=== PATIENT | female | born 1955 | race Caucasian/White ===

== ENCOUNTER 2021-03-08 20:59 | Inpatient (IN) ==
[2021-03-08] MEDS ORDERED: ACETAMINOPHEN 650 MG/65 ML BAG IV ONE (21:39)
[2021-03-08] MEDS ORDERED: KETOROLAC 15 MG/ML VIAL IV ONE (21:39)
[2021-03-09] MEDS ORDERED: ROPIVACAINE HCL/PF 20 ML VIAL IJ ONE (00:08)
--- NOTE | 2021-03-09 00:26 | Emergency Department Note ---
Fall HPI General Chief Complaint: Fall Stated Complaint: LOW BACK PAIN Time Seen by Provider: 03/08/21 21:34 Source: patient and EMS Mode of arrival: EMS Limitations: no limitations History of Present Illness HPI Narrative: Narrative: 66 yo F w/ ho HTN, glaucoma p/w R hip pain. She reports that she was walking out of a store when she tripped, falling to the ground. She did not hit her head or lose consciousness. Her only complaint is of R hip pain, which was the leg that was caught when she tripped. She denies any numbness, tingling, weakness of the RLE. She has never had any pain like this in the past. The pain is worsened w/ ambulation and relieved w/ rest. She was able to have some bystanders assist her into the car, and was able to drive home. However she could not then get out of the car and thus called for help. Related Data Home Medications Medication Instructions Recorded Confirmed lisinopril-hydrochlorothiazide tab PO 03/08/21 brimonidine 1 drp OPHTHALMIC (EYE) BID 03/09/21 03/09/21 latanoprost 1 drp OPHTHALMIC (EYE) HS 03/09/21 03/09/21 Allergies Allergy/AdvReac Type Severity Reaction Status Date / Time No Known Drug Allergies Allergy Verified 03/08/21 21:05 Review of Systems ROS ROS Narrative: Narrative: All systems ED: reviewed and negative except as stated. [facility] Narrative Patient History Narrative: Narrative: Medical/Surgical/Family History All Active Problems (Updated 03/09/21 @ 01:50 by Trey Osuna MD) Knee pain, acute (Acute) Colovaginal fistula (Acute) Cellulitis of colostomy (Acute) Cellulitis (Acute) Infected surgical wound (Acute) Acute pain of right hip (Acute) Closed fracture of neck of right femur (Acute) Social History Smoking Status: Former smoker Exam Narrative Narrative: Narrative: General Limitations: no limitations General appearance: Present alert and in no apparent distress Head Head: Present atraumatic and normocephalic Eye Eye: Present normal appearance ENT ENT: Present normal oropharynx and mucous membranes moist Neck Neck: Present normal inspection; Absent tenderness Chest Chest: Present normal inspection and symmetric chest wall rise Respiratory Respiratory: Present normal lung sounds bilaterally; Absent respiratory distress, rales/crackles, wheezes and stridor Cardiovascular Cardiovascular: Present regular rate, normal rhythm, +S1, +S2 and other (2+ B/L radial pulse); Absent systolic murmur and diastolic murmur Adbominal Abdominal: Present soft and normal bowel sounds; Absent distention and tenderness Extremities Extremities: Present other (RLE foreshortened and rotated. Pain w/ external rotation. Unable to tolerate flexion and the hip and knee. Full ROM at ankle. Intact sensation over all dermatomes on the R foot. Intact 2+ DP pulse and 1 sec CR over the R great toe. ) Neurological Neurological: Present alert and oriented X3 Psychiatric Psychiatric: Present normal affect Skin Skin: Present warm (WNL) and dry Course Vital Signs Vital signs: Vital Signs Temperature 98.8 F 03/08/21 21:00 Pulse Rate 72 03/08/21 21:00 Respiratory Rate 20 03/08/21 21:00 Blood Pressure 110/80 03/08/21 21:00 Pulse Oximetry (%) 94 03/08/21 21:00 Temperature 97.8 F 03/09/21 03:02 Pulse Rate 78 03/09/21 03:02 Respiratory Rate 18 03/09/21 03:02 Blood Pressure 109/63 03/09/21 03:02 Pulse Oximetry (%) 93 03/09/21 03:02 Procedures Other Procedure: Procedure: US guided fascia iliaca block Consent: Verbal, R/B/A explained to pt Indication: R hip Fx Procedure: I used US to identify the femoral nerve directly lateral to the femoral artery. I then made a wheal of anesthetic on the overlying skin w/ 1% lidocaine after aspirating to ensure that there was no intravascular injection. I then prepped the site with betadine prep (chloraprep stick not available). With a sterile sheath over the US probe, I re-identified the site. I then used U S guidance to direct a 21 guage spinal needle just lateral to the nerve and under the iliac fascia. The spinal needle was attached to extension tubing and had already been prepped w/ NS. I had the RN, holding a saline flush attached to the extension tubing, inject NS after aspirating to ensure that were not in a vessel. This opened the space very well around the nerve. I then directed him to switch out the saline for 30 ml of 0.5% ropivicaine. Meanwhile I held the needle and probe in place. Once done, we aspirated again w/ no blood present. While I cont'd to hold the needle and probe in place, he injected 5 ml at a time and then aspirated. We cont'd this, with myself ensuring that the needle was in place and that there was no blood being aspirated, until 30ml of ropivicaine was given. I then withdrew the needle and the procedure was complete. MDM MDM Narrative Medical decision making narrative: Narrative: 66 yo F w/ well controlled HTN and glaucoma p/w R hip pain. DDx - Hip Fx, spinal injury, closed head injury, neurovascular injury This pt presented clinically stable, in NAD. She had no clinical evidence of head or spinal injury, and no neurovascular injury on Hx or exam. There was obvious evidence of a R hip Fx. I checked an XR which showed a Fx, however the views were not ideal. In order to ensure that no other Fxs were present, I checked a CT pelvis w/o contrast, which showed only the impacted R femoral neck Fx. I d/w Dr Marquez who kindly agreed to take the pt on his service as the hospitalist service was capped. I placed routine preop labs, which showed no anemia, normal renal function, normal electrolyte. I also completed a fascia iliaca nerve block on the right, which was effective in reducing her pain. She was then moved to the floor for ongoing care. Lab Data Result diagrams: 03/09/21 00:26 03/09/21 00:26 Labs: Lab Results 03/09/21 03/09/21 03/09/21 Range/Units 00:25 00:26 00:26 WBC 11.2 H (4.5-11.0) K/mcL RBC 4.47 (3.59-5.38) M/mcL Hgb 13.3 (11.2-15.7) g/dL Hct 38.7 (34.1-44.9) % MCV 86.6 (80.0-100.0) fL MCH 29.8 (26.0-34.0) pg MCHC 34.4 (31.0-36.0) g/dL RDW 13.6 (11.5-14.5) % Plt Count 175 (140-440) K/mcL MPV 10.2 (7.4-10.4) fL Neut % (Auto) 82.9 H (38.0-78.0) % Lymph % (Auto) 11.7 L (15.5-49.0) % [place] % (Auto) 4.9 (1.0-12.0) % Eos % (Auto) 0.2 (0.0-7.0) % Baso % (Auto) 0.3 (0.0-2.0) % Lymph # (Auto) 1.31 L (1.50-4.80) K/mcL [place] # (Auto) 0.55 (0.10-0.90) K/mcL Eos # (Auto) 0.02 (0.00-0.70) K/mcL Baso # (Auto) 0.03 (0.00-0.30) K/mcL Absolute Neutrophils 9.30 H (1.80-8.00) K/mcL PT 13.7 (11.9-14.5) sec INR 1.0 (0.9-1.1) APTT 29.7 (20.0-37.0) sec Sodium 138 (133-145) mmol/L Potassium 3.8 (3.3-5.1) mmol/L Chloride 101 (96-108) mmol/L Carbon Dioxide 25 (22-30) mmol/L Anion Gap 12.0 (8.0-16.0) BUN 13 (8-23) mg/dL Creatinine 0.7 (0.6-1.1) mg/dL GFR Calculation 89 Glucose 129 H (70-105) mg/dL Calcium 9.1 (8.6-10.4) mg/dL Total Bilirubin 0.3 (0.1-1.0) mg/dL AST 20 (<32) U/L ALT 18 (<40) U/L Alkaline Phosphatase 76 (39-117) U/L Total Protein 6.6 (5.9-8.4) gm/dL Albumin 3.9 (3.2-5.2) gm/dL Globulin 2.7 (2.2-3.7) gm/dL Albumin/Globulin Ratio 1.4 (1.0-2.3) Discharge Plan Patient/Caregiver Discharge Instructions Pt seen by OFFICE MACHINE EMBOSSOGRAPH OPERATOR/PA only: No Clinical Impression: Acute pain of right hip, Closed fracture of neck of right femur Patient Disposition: Xfer As Inpt ([facility]) Condition: Good Discharge Date/Time: 03/09/21 01:18 Discharge Comment: on WW 0118hrs
[2021-03-09 01:18] LABS: Basophils # (Auto) 0.03 K/mcL (0.00-0.30); Basophils % (Auto) 0.3 % (0.0-2.0); Eosinophils # (Auto) 0.02 K/mcL (0.00-0.70); Eosinophils % (Auto) 0.2 % (0.0-7.0); Hematocrit 38.7 % (34.1-44.9); Hemoglobin 13.3 g/dL (11.2-15.7); Lymphocytes # (Auto) 1.31 K/mcL (1.50-4.80); Lymphocytes % (Auto) 11.7 % (15.5-49.0); Mean Cell Volume 86.6 fL (80.0-100.0); Mean Corpuscular HGB Conc 34.4 g/dL (31.0-36.0); Mean Platelet Volume 10.2 fL (7.4-10.4); Monocytes # (Auto) 0.55 K/mcL (0.10-0.90); Monocytes % (Auto) 4.9 % (1.0-12.0); Neutrophils % (Auto) 82.9 % (38.0-78.0); Platelet Count 175 K/mcL (140-440); RBC 4.47 M/mcL (3.59-5.38); Red Cell Distribution Width 13.6 % (11.5-14.5); WBC 11.2 K/mcL (4.5-11.0)
[2021-03-09] MEDS ORDERED: ONDANSETRON 4 MG/2 ML VIAL IV PRN ×2 (01:26→18:11)
[2021-03-09] MEDS ORDERED: morphine 2 MG/ML VIAL IV PRN (01:26)
[2021-03-09 01:31] LABS: Partial Thromboplastin Time 29.7 sec (20.0-37.0); Prothrombin Time 13.7 sec (11.9-14.5)
[2021-03-09 01:44] LABS: ALT/SGPT 18 U/L (<40); AST/SGOT 20 U/L (<32); Albumin 3.9 gm/dL (3.2-5.2); Albumin/Globulin Ratio 1.4 (1.0-2.3); Alkaline Phosphatase 76 U/L (39-117); Bilirubin,Total 0.3 mg/dL (0.1-1.0); Blood Urea Nitrogen 13 mg/dL (8-23); Calcium 9.1 mg/dL (8.6-10.4); Carbon Dioxide 25 mmol/L (22-30); Chloride 101 mmol/L (96-108); Globulin 2.7 gm/dL (2.2-3.7); Glomerular Filtration Rate 89; Glucose 129 mg/dL (70-105)
[2021-03-09] MEDS ORDERED: ACETAMINOPHEN 650 MG/65 ML BAG IV PRN (01:44)
[2021-03-09] MEDS ORDERED: morphine 4 MG/ML VIAL ONE (02:03)
[2021-03-09] MEDS: morphine 4 MG/ML VIAL IV PRN ×2 (02:17→08:16)
--- NOTE | 2021-03-09 07:43 | History and Physical Report ---
DATE OF ADMISSION: 03/09/2021 CHIEF COMPLAINT: Right hip fracture. HISTORY OF PRESENT ILLNESS: The patient is a 66-year-old female who sustained a fall. This was a non-syncopal ground-level fall. She had immediate pain and was able to make it to her house to drive home, but she was transferred then to the Emergency Room and workup has shown a right hip fracture. This is a femoral neck, subcapital. She now presents with pain, but this is well-tolerated as long as she is at rest and nonmobile. PAST MEDICAL HISTORY: Hypertension, glaucoma. PAST SURGICAL HISTORY: Non-contributory to present problem. MEDICATIONS: Lisinopril/hydrochlorothiazide. Bromindione eye drops. Latanoprost eye drops. ALLERGIES: None. REVIEW OF SYSTEMS: She has generally been healthy and her ten-point review of systems is negative for recent past. PHYSICAL EXAMINATION: GENERAL: She is awake and alert. She answers questions appropriately. HEAD: Normocephalic/atraumatic. EYES: Pupils round and reactive to light and accommodation. No conjunctivitis. ENT: Within normal limits. NECK: Supple without pain on range of motion. HEART: Regular. LUNGS: Clear. ABDOMEN: Benign. EXTREMITIES: Her right lower extremity was carefully positioned. She does have pain with any motion. She is grossly without neurovascular deficit. IMAGING: Radiographs demonstrate a displaced femoral neck fracture. IMPRESSION: Right femoral neck fracture, displaced. PLAN: We have reviewed surgical options. Risks, complications, and limitations of the surgery have been discussed. We plan to proceed with a hemiarthroplasty on the right hip. Patient understands the discussed procedure and wishes to proceed. GDD:zaid Job ID: [id number] Doc ID: [id number] Martín Kaufman MD
[2021-03-09 08:43] LABS: Appearance,Urine CLOUDY (Clear); Bilirubin,Urine Negative (Negative); Color,Urine AMBER; Culture Indicated,Urine No; Glucose,Urine (UA) Negative (Negative); Ketones,Urine Negative (Negative); Leukocyte Esterase,Urine Negative /uL (Negative); Nitrate,Urine Negative (Negative); Protein,Urine Negative (Negative); Specific Gravity,Urine 1.034 (1.000-1.035); Urine Blood Negative (Negative); Urobilinogen,Urine Negative
--- NOTE | 2021-03-09 08:51 | XRay Report ---
CLINICAL INFORMATION: FALL COMPARISON: None. FINDINGS: Acute transcervical fracture through the right femoral neck appreciated with mild coxa vara angulation. Mild displacement anteriorly of femoral neck fragment. No other osseous abnormality. Both SI and hip joints are normal with alignment without arthritic change. Soft tissue swelling over the right hip appreciated IMPRESSION: Transcervical fracture right femoral neck with mild angulation and displacement. Follow-up CT will be performed Interpreted and Authenticated by: Robles Ramirez 03/09/21
--- NOTE | 2021-03-09 08:57 | Cat Scan Report ---
CLINICAL INFORMATION: Trauma. Now with right hip pain COMPARISON: None. TECHNIQUE: 0.625 mm helical slices were obtained from the mid L4 through the subtrochanteric regions. Following reconstruction, 2.5 mm sagittal, coronal and axial reformations were processed. The exam was reviewed in bone and soft tissue windows. The exam was performed using radiation dose optimization techniques including, but not limited to, automated exposure control, adjustment of mA and/or kV according to patient size and use of iterative reconstruction technique. FINDINGS: Acute transverse transcervical fracture through the right femoral neck results in 40 degrees angulation of the anterior apex. There is 5 mm of anterior displacement by the proximal femoral neck. No other osseous abnormalities. The SI and hip joints are normal with alignment without arthritic change. At L5-S1, moderate broad disc spur complex results in severe bilateral IV foraminal narrowing impinging the exiting L5 nerve roots-more severe on the left side. Moderate central canal stenosis also noted. At L4-5, moderate broad disc protrusion and facet arthropathy result in moderate central canal, moderate right and mild left IV foraminal narrowing. There is impingement of the exiting right L4 nerve root. Uterus is anteflexed and normal postmenopausal size: 6.5 x 2.1 cm. Two cysts on the left ovary span 3.7 cm and 1.7 cm respectively. Minor calcification seen in the dependent portion of the larger cyst. No free air or free fluid. A large infraumbilical hernia spans 19 cm and contains a segment of sigmoid colon a few loops of bowel. The bowel is not obstructed or incarcerated. No edema. Visualized small large bowel are, otherwise, normal. IMPRESSION: 1. Acute, mildly displaced, angulated transcervical fracture of the right femoral neck. 2. Large (19 cm) broad mouth infraumbilical hernia containing nonincarcerated nonobstructed loops of small bowel and sigmoid colon. There is a second 8 cm adjacent hernia in the left lower quadrant contains a segment of sigmoid colon and mesenteric fat. 3. L5-S1 degenerative stenosis resulting in severe bilateral IV foraminal and moderate central canal narrowing. There is impingement of the exiting L5 and descending S1 nerve roots. 4. Two cysts in the left ovary 3.7 cm and 1.7 cm respectively. Smaller calcification in the dependent larger cysts. Consider follow-up pelvic ultrasound Interpreted and Authenticated by: Robles Ramirez 03/09/21
--- NOTE | 2021-03-09 09:09 | EKG ---
[facility] Test Date: 2021-03-09 Pat Name: Liya aLnce Department: [facility] Room: 126 Gender: Female E Merchant: : 1955 Requested By: Blessing Britton Order Number: [id number] Reading MD: Giovanni Betancourt Measurements Intervals [place] Rate: 75 P: 2 NV: 152 QRS: 78 QRSD: 100 T: 19 QT: 384 QTc: 429 Interpretive Statements SINUS RHYTHM VENTRICULAR PREMATURE COMPLEX Electronically Signed On 03-09-2021 9:09:21 PDT by Giovanni Betancourt /store/M0/[id number]/[id number].pdf
[2021-03-09] MEDS ORDERED: ceFAZolin 2 GM in DEXTROSE 5% IN WATER 50 ML IV SCH ×2 (13:15→18:45)
[2021-03-09] MEDS ORDERED: ACETAMINOPHEN 1,000 MG/100 ML BAG IV ONE (15:04)
[2021-03-09] MEDS ORDERED: DEXAMETHASONE 10 MG/ML VIAL ONE (17:27)
[2021-03-09] MEDS ORDERED: PHENYLEPHRINE 10 MG/ML VIAL ONE (17:27)
[2021-03-09] MEDS ORDERED: MIDAZOLAM 2 MG/2 ML VIAL ONE (17:27)
[2021-03-09] MEDS ORDERED: TRANEXAMIC ACID 1,000 MG/10 ML VIAL ONE (17:27)
[2021-03-09] MEDS ORDERED: KETAMINE 50 MG/ML Syringe (ANEST) IV ONE (17:27)
[2021-03-09] MEDS ORDERED: PROPOFOL 200 MG/20 ML VIAL IV ONE (17:27)
[2021-03-09] MEDS ORDERED: ONDANSETRON 4 MG/2 ML VIAL ONE (17:27)
[2021-03-09] MEDS ORDERED: MAGNESIUM SULFATE 2 GM/50 ML BAG IV ONE (17:27)
[2021-03-09] MEDS ORDERED: LIDOCAINE HCL/PF 100 MG/5 ML SYRINGE IV ONE (17:27)
[2021-03-09] MEDS ORDERED: GLYCOPYRROLATE 0.2 MG/ML VIAL IV ONE (17:27)
[2021-03-09] MEDS ORDERED: fentaNYL 100 MCG/2 ML VIAL IV ONE (17:27)
[2021-03-09] MEDS ORDERED: GENTAMICIN SULFATE 800 MG/20 ML VIAL IR ONE (18:10)
[2021-03-09] MEDS ORDERED: BENZOCAINE/MENTHOL 1 LOZENGE PO PRN ×2 (18:11→18:28)
[2021-03-09] MEDS ORDERED: METHOCARBAMOL 1,000 MG/10 ML VIAL IV PRN (18:11)
[2021-03-09] MEDS ORDERED: LABETALOL 5 MG/ML ML IV PRN (18:11)
[2021-03-09] MEDS ORDERED: PROMETHAZINE 25 MG/ML VIAL IM PRN (18:11)
[2021-03-09] MEDS ORDERED: IPRATROPIUM/ALBUTEROL 3 ML AMPUL.NEB NEB PRN (18:11)
[2021-03-09] MEDS ORDERED: KETOROLAC 15 MG/ML VIAL IV PRN (18:11)
[2021-03-09] MEDS ORDERED: MEPERIDINE 25 MG/ML VIAL IV PRN (18:11)
[2021-03-09] MEDS ORDERED: MEPERIDINE 50 MG/ML VIAL IM PRN (18:11)
[2021-03-09] MEDS ORDERED: fentaNYL 100 MCG/2 ML VIAL IV PRN (18:11)
[2021-03-09] MEDS ORDERED: VANCOMYCIN 1 GM VIAL TOPICAL SCH (18:15)
[2021-03-09] MEDS ORDERED: LACTATED RINGERS 1,000 ML IV SCH (18:15)
--- NOTE | 2021-03-09 18:26 | Brief Operative Note ---
Brief Operative Note Date of procedure: 03/09/21 Pre-op diagnosis: Right femoral neck fracture Post-op diagnosis: same Procedure: hemiarthroplasty Grafts/Implants: Yes Anesthesia: GETA Findings: fracture Complications: none Surgeon: Martín Kaufman Estimated blood loss (cc): 150 Specimens Removed/Pathology: none sent Condition: stable
[2021-03-09] MEDS ORDERED: MAGNESIUM HYDROXIDE 30 ML ORAL.SUSP PO PRN (18:28)
[2021-03-09] MEDS ORDERED: BISACODYL 10 MG SUPP.RECT PR PRN (18:28)
[2021-03-09] MEDS ORDERED: POLYETHYLENE GLYCOL 3350 17 GM PACKET PO PRN (18:28)
[2021-03-09] MEDS ORDERED: FLEETS ADULT ENEMA PR PRN (18:28)
[2021-03-09] MEDS ORDERED: ONDANSETRON 4 MG ODT TABLET SL PRN (18:33)
[2021-03-09] MEDS ORDERED: HYDROCODONE/APAP 7.5/325MG TABLET PO PRN (18:33)
[2021-03-09] MEDS: 0.45 % SODIUM CHLORIDE 1,000 ML IV SCH (19:55)
[2021-03-09] MEDS: 0.9 % SODIUM CHLORIDE 10 ML SYRINGE IV SCH (21:39)
[2021-03-09] MEDS: DOCUSATE SODIUM 100 MG CAPSULE PO SCH (21:45)
[2021-03-09] MEDS: SENNOSIDES 1 TABLET PO SCH (21:45)
[2021-03-09] MEDS: ceFAZolin 1 GM VIAL IV SCH (22:02)
--- NOTE | 2021-03-10 01:31 | XRay Report ---
CLINICAL INFORMATION: post -op hemiarthroplasty COMPARISON: None. FINDINGS: Right hip hemiarthroplasty is anatomically aligned. No osseous abnormality. Both SI and left hip joints are normal in width and alignment without arthritic change. Soft tissue swelling over the surgical site seen as expected IMPRESSION: Right hip hemiarthroplasty anatomically aligned. Interpreted and Authenticated by: Robles Ramirez 03/10/21
[2021-03-10] MEDS: ceFAZolin 1 GM VIAL IV SCH ×3 (06:05→21:20)
[2021-03-10] MEDS: 0.9 % SODIUM CHLORIDE 10 ML SYRINGE IV SCH ×3 (06:08→21:20)
[2021-03-10 06:56] LABS: Hematocrit 38.7 % (34.1-44.9); Hemoglobin 12.9 g/dL (11.2-15.7)
[2021-03-10] MEDS ORDERED: ACETAMINOPHEN 500 MG TABLET PO PRN (07:10)
--- NOTE | 2021-03-10 07:18 | Orthopedic Progress Note ---
SUBJECTIVE Subjective Patient information: Note initiated : 03/10/21 at 7:13 am Service Date, if different from initiated Date: [] Patient: Liya Lance 66 y/o F admitted on 03/09/21 for LOW BACK PAIN. Chief Complaint: [S/p right hip hemiarthroplasty] Patient is doing well and has no pain complaints. She denies any increased SOA, chest pain, or lower extremity calf tenderness. Constitutional Vitals: Vital Signs Temp Pulse Resp BP Pulse Ox 97.1 F 68 14 130/71 94 03/10/21 04:00 03/10/21 05:51 03/10/21 05:51 03/10/21 04:00 03/10/21 05:51 Period Temp Pulse Resp BP Sys/Gustafson Pulse Ox Last 24 Hr 97.1 F-99.1 F 57-97 13-22 103-167/56-114 90-100 Intake and Output 03/09/21 03/10/21 03/10/21 21:59 05:59 13:59 Intake Total 1450 480 Output Total 865 Balance 585 480 Weight 229 lb 6 oz Intake & Output: Intake & Output 03/09/21 03/10/21 03/10/21 21:59 05:59 13:59 Intake Total 1450 480 Output Total 865 Balance 585 480 Weight 229 lb 6 oz Intake: IV 150 Ancef 2 gm In Dextrose 5% in 50 Water 50 ml @ 100 mls/hr IV PREOP SLAVA Rx#:[id number] Oral 480 IV - Manual Only 1300 Output: Urine Catheter Amount 800 Estimated Blood Loss 65 Other: Urine Appearance Clear Uretheral (Oseguera) Clear Clear Urine Color Light Shilpa Uretheral (Oseguera) Bright Yellow Bright Yellow General appearance: cooperative, no acute distress and obese Head Head exam: Present atraumatic and normocephalic Extremities Exam Extremities exam: Present calf tenderness (negative bilaterally), Enzo's sign (negative bilaterally), Foot pink and warm and neurovascular intact Additional comments: Surgical incision on lateral aspect of right hip is w/o active drainage. Perry are intact w/o erythema. Mild swelling surrounding incision. Psychiatric Psychiatric exam: Present normal affect and normal mood OBJ DATA Labs CBC & Chem 7: 03/10/21 05:35 03/09/21 00:26 Labs: Abnormal Lab Results 03/09/21 03/09/2121 07:30 00:26 00:26 WBC 11.2 H Neut % (Auto) 82.9 H Lymph % (Auto) 11.7 L Lymph # (Auto) 1.31 L Absolute Neutrophils 9.30 H Glucose 129 H Urine Appearance Cloudy A Meds: Medications Hydrocodone Bitart/Acetaminophen (Hydrocodone/Apap 7.5/325mg Tablet) 0 tab PO Q4HP PRN; Protocol PRN Reason: Per Pain Protocol Bisacodyl (Bisacodyl 10 Mg Supp.Rect) 10 mg SD Q2-3DAYS PRN PRN Reason: Constipation Cefazolin Sodium (Cefazolin 1 Gm Vial) 2 gm IV Q8H [facility] Last Admin: 03/10/21 06:05 Dose: 2 gm Documented by: Docusate Sodium (Docusate Sodium 100 Mg Capsule) 100 mg PO BID [facility] Last Admin: 03/09/21 21:45 Dose: Not Given Documented by: Sodium Chloride (Sodium Chloride 0.45%) 1,000 mls @ 75 mls/hr IV .[id number] [facility] Last Admin: 03/09/21 19:55 Dose: 75 mls/hr Documented by: Magnesium Hydroxide (Magnesium Hydroxide 30 Ml Oral.Susp) 30 ml PO BIDP PRN PRN Reason: Constipation Ondansetron HCl (Ondansetron 4 Mg Odt Tablet) 4 mg SL Q4HP PRN; Protocol PRN Reason: Nausea And Vomiting Polyethylene Glycol (Polyethylene Glycol 3350 17 Gm Packet) 17 gm PO DAILYP PRN PRN Reason: Constipation Senna (Sennosides 1 Tablet) 2 tab PO HS [facility] Last Admin: 03/09/21 21:45 Dose: Not Given Documented by: Sodium Biphosphate/Sodium Phosphate (Fleets Adult Enema) 1 dose SD Q3-4DAYS PRN PRN Reason: Constipation Sodium Chloride (0.9 % Sodium Chloride 10 Ml Syringe) 10 ml IV Q8 [facility] Last Admin: 03/10/21 06:08 Dose: Not Given Documented by: Throat Lozenges (Benzocaine/Menthol 1 Lozenge) 1 lozenge PO PRN PRN PRN Reason: Sore Throat Vancomycin HCl (Vancomycin 1 Gm Vial) 1 gm TOPICAL ONCE [facility]; Protocol Last Admin: 03/09/21 18:16 Dose: 1 gm Documented by: A/P Assessment and plan (1) Closed fracture of neck of right femur: Status: Acute Narrative A/P Narrative: PT today. Patient is WBAT on RLE. Possible discharge to home tomorrow if doing well with PT and pain is well controlled. She may start Tylenol q4-6h prn pain and hydrocodone for breakthrough. Time Spent With Patient Time: Total time spent is greater than 50% in coordination of care (as docum ented) at patient's floor/unit and/or counseling patient:
[2021-03-10] MEDS: DOCUSATE SODIUM 100 MG CAPSULE PO SCH ×2 (07:56→21:14)
[2021-03-10 08:10] LABS: INR 1.1 (0.9-1.1); Prothrombin Time 14.9 sec (11.9-14.5)
[2021-03-10] MEDS: 0.45 % SODIUM CHLORIDE 1,000 ML IV SCH (08:34)
--- NOTE | 2021-03-10 08:40 | Operative Note ---
DATE OF OPERATION: 03/09/2021 PREOPERATIVE DIAGNOSIS: Right femoral neck subcapital displaced fracture. POSTOPERATIVE DIAGNOSIS: Right femoral neck subcapital displaced fracture. OPERATION PROPOSED: Right hip hemiarthroplasty. OPERATION PERFORMED: Right hip hemiarthroplasty. SURGEON: Jamshid Kaufman M.D. STORE HOST: Sarah Walls PA-C. This providers expertise and technical skill were required throughout the case. The ADRIANA assisted with preoperative coordination, intraoperative retraction, wound closure, and dressing and splint application, as well as postoperative documentation and care coordination. INDICATIONS: This is a 66-year-old lady who has a displaced femoral neck fracture in need of operative treatment. DESCRIPTION OF PROCEDURE: Informed consent was obtained. She was taken to the operating room and provided with appropriate anesthetic and prophylactic antibiotics. She was carefully positioned. Her hip was prepped sterilely. A standard posterior approach to the hip was performed. I dissected through the fascia and the iliotibial band. I cut and released short external rotators. The hip capsule was cut and T'd. I then refined the femoral neck cut. I removed the napkin ring of bone. The femoral head was engaged with a corkscrew and removed. I then sequentially reamed and broached the femur. I calcar reamed off of a size 6 stem. A size 7 ACTIS stem was implanted. It was quite stable. This was paired with a 50 head ball and a neutral +0 taper. The wounds were reduced. The hip was stable. Capsule was closed with a Ti-Cron. The iliotibial band was closed with 0 Vicryl and also a Stratafix, 2-0 inverted deep dermal and dora. The procedure was tolerated well. No complications. I did put vancomycin powder in the wound because she was felt to be high risk for infection. GDD:zaid Job ID: [id number] Doc ID: [id number] Martín Kaufman MD
[2021-03-10] MEDS ORDERED: METHOCARBAMOL 1,000 MG/10 ML VIAL IV PRN (10:50)
[2021-03-10] MEDS ORDERED: METHOCARBAMOL 1,000 MG/10 ML VIAL IV ONE (10:52)
--- NOTE | 2021-03-10 14:30 | XRay Report ---
CLINICAL INFORMATION: Fever COMPARISON: None. TECHNIQUE: PA and Lateral views FINDINGS: The heart size, mediastinum and pulmonary vessels are unremarkable. The lungs are clear. There are no effusions. The bones and soft tissues are within normal limits. IMPRESSION: Normal chest. Interpreted and Authenticated by: Robles Ramirez 03/10/21
[2021-03-10] MEDS ORDERED: ACETAMINOPHEN 650 MG/65 ML BAG IV PRN (15:35)
[2021-03-10] MEDS ORDERED: diphenhydrAMINE 25 MG CAPSULE PO PRN (17:57)
[2021-03-10] MEDS ORDERED: METHOCARBAMOL 750 MG TABLET PO PRN (19:00)
[2021-03-10] MEDS: SENNOSIDES 1 TABLET PO SCH (21:14)
[2021-03-11] MEDS: traMADol 50 MG TABLET PO PRN ×2 (04:12→14:51)
[2021-03-11] MEDS: 0.9 % SODIUM CHLORIDE 10 ML SYRINGE IV SCH ×3 (05:58→20:52)
[2021-03-11] MEDS: ceFAZolin 1 GM VIAL IV SCH (05:58)
[2021-03-11 06:57] LABS: Hematocrit 36.7 % (34.1-44.9)
--- NOTE | 2021-03-11 07:12 | Discharge Summary ---
Discharge Provider Provider Patient information: Note initiated : 03/11/21 at 7:10 am Service Date, if different from initiated Date: [] Patient: Liya Lance 66 y/o F admitted on 03/09/21 for LOW BACK PAIN. Chief Complaint: [] Date of admission: 03/09/21 01:18 Discharge date: 03/11/21 Primary care physician: NIGEL Ochoa Consults: 03/09/21 Consult to Physician [CONS] Stat Comment: Consulting Provider: Martín Kaufman Reason For Exam: Physician to Consult COURSE Hospital Course Hospital course: routine post op Discharge diagnosis: hip fracture Time Spent with Patient Time attestation: Total time spent providing and/or coordinating discharge services: Discharge Plan Patient/Caregiver Discharge Instructions Activity: ambulate only with your walker Diet: Regular Diet Prescriptions: New tramadol 50 mg Tablet 50 mg PO Q4HP PRN (Reason: Pain) Qty: 50 RF: 0 Continued lisinopril-hydrochlorothiazide 10-12.5 mg tablet 10 - 325 tab PO QAM RF: 0 latanoprost 0.005 % drops 1 drp OPHTHALMIC (EYE) HS RF: 0 brimonidine 0.2 % drops 1 drp OPHTHALMIC (EYE) BID RF: 0 Follow Up Plan Follow up with: Arsenio Garrison ARNP [Primary Care Provider] - Patient Disposition: Xfer SNF Care Plan Goals: movilize Hospital Course: uneventful Prognosis: Good Rehab Potential: Fair I certify that the patient requires SNF services: Yes Discharge Orders: Discharge Order (Routine); Ordered 03/11/21 Ordered By: Martín Kaufman Pending Pending Pending: Resuscitation Status Resuscitate (Full Code) Diet Regular Diet Start TueMar 09 1834 Acetaminophen (Acetaminophen 500 Mg Tablet) 500 mg PO Q4-6HP PRN; Protocol PRN Reason: Per Pain Protocol Last Admin: 03/10/21 10:32 Dose: 500 mg Documented by: JUAN Cefazolin Sodium (Cefazolin 1 Gm Vial) 2 gm IV Q8H [facility] Last Admin: 03/11/21 05:58 Dose: 2 gm Documented by: Admin: 03/10/21 21:20 Dose: 2 gm Documented by: Admin: 03/10/21 14:50 Dose: 2 gm Documented by: Admin: 03/10/21 06:05 Dose: 2 gm Documented by: Admin: 03/09/21 22:02 Dose: 2 gm Documented by: HILARY Docusate Sodium (Docusate Sodium 100 Mg Capsule) 100 mg PO BID [facility] Last Admin: 03/10/21 21:14 Dose: 100 mg Documented by: Admin: 03/10/21 07:56 Dose: 100 mg Documented by: Admin: 03/09/21 21:45 Dose: Not Given Documented by: HILARY Acetaminophen (Ofirmev) 650 mg in 65 mls @ 130 mls/hr IV Q6HP PRN; Protocol PRN Reason: PAIN/FEVER > 101 Last Infusion: 03/10/21 17:37 Dose: 0 mls/hr Documented by: Admin: 03/10/21 16:05 Dose: 130 mls/hr Documented by: JUAN Methocarbamol (Methocarbamol 750 Mg Tablet) 750 mg PO Q8HP PRN PRN Reason: Muscle Spasm Last Admin: 03/11/21 06:53 Dose: 750 mg Documented by: MERLE Ondansetron HCl (Ondansetron 4 Mg Odt Tablet) 4 mg SL Q4HP PRN; Protocol PRN Reason: Nausea And Vomiting Last Admin: 03/11/21 04:12 Dose: 4 mg Documented by: REINALDO Senna (Sennosides 1 Tablet) 2 tab PO HS [facility] Last Admin: 03/10/21 21:14 Dose: 2 tab Documented by: Admin: 03/09/21 21:45 Dose: Not Given Documented by: HILARY Sodium Chloride (0.9 % Sodium Chloride 10 Ml Syringe) 10 ml IV Q8 [facility] Last Admin: 03/11/21 05:58 Dose: 10 ml Documented by: Admin: 03/10/21 21:20 Dose: 10 ml Documented by: Admin: 03/10/21 14:50 Dose: 10 ml Documented by: Admin: 03/10/21 06:08 Dose: Not Given Documented by: Admin: 03/09/21 21:39 Dose: Not Given Documented by: HILARY Tramadol HCl (Tramadol 50 Mg Tablet) 50 mg PO Q4HP PRN; Protocol PRN Reason: Pain Last Admin: 03/11/21 04:12 Dose: 50 mg Documented by: REINALDO Shift Summary 03/11/21 05:05 Shift Summary by Gail Augustine Admitted after falling in store parking lot & breaking hip. Up w/1 assist & FWW/GB. Moves very slowly. Was impressed w/herself last night by walking from one side of the bed, around the foot, to the other side of the bed. Oseguera in place from admit, should d/c today d/t being post op day 2. Received pain meds once early this morning. Dressing to right hip w/shadow drainage marked; no increase. Pt was planning on going home w/ today. However now is unsure he will be able to help her as much as she's realizing she is needing. She is hoping to have a better idea of needs after PT today. May need CM to talk w/her again before d/c. Initialized on 03/11/21 05:05 - END OF NOTE
[2021-03-11 07:29] LABS: INR 1.1 (0.9-1.1); Prothrombin Time 14.6 sec (11.9-14.5)
[2021-03-11] MEDS: APIXABAN 5 MG TABLET PO SCH ×2 (08:43→20:37)
[2021-03-11] MEDS: DOCUSATE SODIUM 100 MG CAPSULE PO SCH ×2 (08:43→20:37)
[2021-03-11] MEDS: CIPROFLOXACIN 500 MG TABLET PO SCH (20:37)
[2021-03-11] MEDS: SENNOSIDES 1 TABLET PO SCH (20:37)
[2021-03-11] MEDS: BRIMONIDINE OPHTH DROPS 1 GTT BOTTLE 5ML OU SCH (20:39)
[2021-03-12 08:15] LABS: Hematocrit 33.9 % (34.1-44.9); Hemoglobin 11.1 g/dL (11.2-15.7)
[2021-03-12] MEDS: traMADol 50 MG TABLET PO PRN (08:49)
[2021-03-12] MEDS: CIPROFLOXACIN 500 MG TABLET PO SCH (08:49)
[2021-03-12] MEDS: APIXABAN 5 MG TABLET PO SCH (08:49)
[2021-03-12] MEDS: DOCUSATE SODIUM 100 MG CAPSULE PO SCH (08:49)
[2021-03-12] MEDS: BRIMONIDINE OPHTH DROPS 1 GTT BOTTLE 5ML OU SCH (08:50)
[2021-03-12] MEDS: 0.9 % SODIUM CHLORIDE 10 ML SYRINGE IV SCH (08:50)
[2021-03-12 08:57] LABS: INR 1.3 (0.9-1.1); Prothrombin Time 16.6 sec (11.9-14.5)
[2021-03-12] MEDS ORDERED: LISINOPRIL 10 MG TABLET PO SCH (09:00)
[2021-03-12] MEDS ORDERED: HYDROCHLOROTHIAZIDE 12.5 MG CAPSULE PO SCH (09:00)
== END 2021-03-12 13:00 | DRG 522 ==
LOC: ED 20:59 → MEDSUR 03-09 01:18
PROVIDERS: ADMIT Orthopaedic Surgery Orthopaedic Surgery of the Spine; ATTEND Orthopaedic Surgery Orthopaedic Surgery of the Spine